=== PATIENT | female | born 1975 | race African-American/Black ===

== ENCOUNTER 2019-10-16 16:00 | Outpatient (CLI) | payer MEDICARE, MEDICAID ==
[2019-10-17] MEDS ORDERED: FLUO60TA PO (11:00)
[2019-10-17] MEDS ORDERED: MELA10CA PO (11:00)
[2019-10-17] MEDS ORDERED: OXYC-307 PO (11:00)
[2019-10-17] MEDS ORDERED: ATEN50TA41 PO (11:00)
[2019-10-17] MEDS ORDERED: ZOLP12.52 PO (11:00)
[2019-10-17] MEDS ORDERED: BUSP15TA PO (11:00)
[2019-10-17] MEDS ORDERED: GABA800T5 PO (11:14)
[2019-10-25] MEDS ORDERED: OXYC5CAP2 PO (15:43)
[2019-10-25] MEDS ORDERED: MORPHINE PO (15:44)
[2019-10-25] MEDS ORDERED: ENOX40SY4 SQ (15:45)
[2019-10-25] MEDS ORDERED: METH750T87 PO (15:45)
[2019-10-25] MEDS ORDERED: DIPH25CA61 PO (15:47)
== END 2019-10-16 23:59 | disposition home or self-care (01) ==
LOC: RAD 16:00
PROVIDERS: ATTEND Neurological Surgery
DX: M47.817 Spondylosis without myelopathy or radiculopathy, lumbosacral region (principal); M51.36 Other intervertebral disc degeneration, lumbar region
CPT/HCPCS: 72131

== ENCOUNTER → 2019-10-17 | Outpatient (CLI) | payer MEDICARE, MEDICAID ==
[~2019-10-17] MED LIST: ATEN50TA41 PO; BUSP15TA PO; FLUO60TA PO; GABA800T5 PO; MELA10CA PO; OXYC-307 PO; ZOLP12.52 PO
[2019-10-17 11:43] LABS: MICROSCOPIC NOT IND
[2019-10-17 11:46] LABS: INTERNATIONAL NORMALIZED RATIO 0.91 (0.93-1.1); PROTHROMBIN TIME 9.6 Seconds (9.6-11.5)
[2019-10-17 11:49] LABS: ALBUMIN 3.7 g/dL (3.4-5.0); ANION GAP 4 mmol/L (5-15); CALCIUM 8.9 mg/dL (8.5-10.1); CHLORIDE 108 mmol/L (98-107)
[2019-10-17 11:52] LABS: ALANINE AMINOTRANSFERASE 22 U/L (12-78); ALKALINE PHOSPHATASE 106 U/L (45-117); BILIRUBIN,TOTAL 0.5 mg/dL (0.2-1.0); CREATININE 0.73 mg/dL (0.55-1.02); TOTAL PROTEIN 7.5 g/dL (6.4-8.2)
[2019-10-17 12:47] LABS: BASOPHILS # (AUTO) 0.04 x10^3/uL (0-0.1); BASOPHILS % (AUTO) 1 % (0-1); EOSINOPHILS # (AUTO) 0.08 x10^3/uL (0-0.4); EOSINOPHILS % (AUTO) 2 % (1-7); LYMPHOCYTES # (AUTO) 1.27 x10^3/uL (1-3.4); LYMPHOCYTES % (AUTO) 25 % (22-44); MD NO; MEAN CORPUSCULAR HEMOGLOBIN 31.1 pg (27.0-34.8); MEAN CORPUSCULAR VOLUME 94.4 fL (80-100); MEAN PLATELET VOLUME 10.4 fL (7.4-10.4); MONOCYTES # (AUTO) 0.36 x10^3/uL (0.2-0.8); MONOCYTES % (AUTO) 7 % (2-9); NEUTROPHILS # (AUTO) 3.35 x10^3/uL (1.8-6.8); NEUTROPHILS % (AUTO) 66 % (42-75); PLATELET COUNT 261 x10^3/uL (130-400); RED BLOOD COUNT 4.25 x10^6/uL (3.82-5.3); RED CELL DISTRIBUTION WIDTH 13.4 % (9.6-15.2)
== END | disposition home or self-care (01) ==
LOC: STAR 10-16 15:20
PROVIDERS: ATTEND Neurological Surgery
DX: Z01.810 Encounter for preprocedural cardiovascular examination (principal); Z01.811 Encounter for preprocedural respiratory examination; Z01.812 Encounter for preprocedural laboratory examination; M51.36 Other intervertebral disc degeneration, lumbar region; M54.5 Low back pain; M54.16 Radiculopathy, lumbar region; M48.061 Spinal stenosis, lumbar region without neurogenic claudication; R79.1 Abnormal coagulation profile; R82.90 Unspecified abnormal findings in urine; R94.31 Abnormal electrocardiogram [ECG] [EKG]
CPT/HCPCS: 36415; 71046; 80053; 81003; 85025; 85610; 85730; 93005

== ENCOUNTER 2019-10-25 23:01 | Emergency (ER) | payer MEDICARE, MEDICAID ==
[~2019-10-25] VITALS: Ht 157.5 cm; Wt 83.0 kg
[~2019-10-25 23:01] MED LIST changes: +DIPH25CA61 PO; +ENOX40SY4 SQ; +METH750T87 PO; +MORPHINE PO; +OXYC5CAP2 PO
[2019-10-25] MEDS ORDERED: ONDANSETRON ODT 4 MG PO ONE (23:30)
[2019-10-25] MEDS ORDERED: HYDROmorphone 1 MG/ML, 1ML INJ IM ONE (23:30)
[2019-10-25] MEDS ORDERED: PLEASE ENTER WEIGHT MC SCH (23:45)
[2019-10-26] MEDS ORDERED: ONDANSETRON 2MG/ML, 2ML ONE (00:28)
[2019-10-26] MEDS ORDERED: HYDROmorphone 1 MG/ML, 1ML INJ ONE (00:28)
[2019-10-26 00:35] VITALS: BP 133/68
--- NOTE | 2019-10-26 01:18 | NUR ---
REPORT FROM DARI MATA
[2019-10-26] MEDS ORDERED: OXYcodone/APAP 10/325MG TABLET PO ONE (02:00)
[2019-10-26] MEDS ORDERED: METHOCARBAMOL 750 MG TABLET PO ONE (02:00)
[2019-10-26] MEDS ORDERED: METHOCARBAMOL 750 MG TABLET ONE (02:24)
[2019-10-26] MEDS ORDERED: OXYcodone/APAP 10/325MG TABLET ONE (02:24)
--- NOTE | 2019-10-26 02:36 | NUR ---
PT REQUESTS [facility] TO RETURN TO REHAB FACILITY. PT PROVIDED VOUCHER AND PT AMBULATED INDEPENDENTLY TO CHAIR IN ROOM AND TRANSFERED TO WHEELCHAIR INDEPENDENTLY. I CALLED [facility] AND TALKED TO DARI GARCIA WHO WILL BE WAITING FOR HER ARRIVAL TO ASSIST HER BACK INTO FACILITY. PT MEDICATED FOR PAIN PER EMAR PRIOR TO LEAVING.
== END 2019-10-26 02:41 | disposition home or self-care (01) ==
LOC: ED 10-26 00:29
DX: M54.5 Low back pain (principal); G89.29 Other chronic pain; I10 Essential (primary) hypertension
CPT/HCPCS: 72110; 96372; 99284; J1170; Q0162